=== PATIENT | male | born 1980 | race Caucasian/White ===

== ENCOUNTER 2024-12-13 09:21 | Emergency (ER) | payer BC, SELFPAY ==
[2024-12-13 09:25] VITALS: BP 141/99
[2024-12-13] MEDS: TORADOL 15 MG IV (10:01)
[2024-12-13 10:04] VITALS: BMI 27.0
--- NOTE | 2024-12-13 10:11 | ED.GENMED ---
History of Present Illness
General
Chief Complaint: Abdominal Symptoms
Time Seen by Provider: 12/13/24 09:33
History of Present Illness
History of Present Illness:
44-year-old male without reported past medical history presenting to the emergency department for right lower abdominal pain. Patient reports pain for the past week or so. Initially had been intermittent, now more constant. Denies any nausea,
vomiting, changes in stool. Denies any fever. Denies any history of abdominal surgeries. Denies chest pain or difficulty breathing. Notes that the pain is in the groin region primarily. Denies any back pain. Denies any association with lifting
or trauma. Denies additional acute medical complaints
Past History
Past History
ED Past Medical History: Asthma and GERD
ED Past Surgical History: None
Social History
Tobacco: Non-smoker
Alcohol: Occasional
Drug: None
Personal:
Living: with family
Employment: Employed
Family History
Family History: Negative Early CAD
Phy Exam
Physical Exam
Physical Exam:
General: Well-appearing, no clinical signs of dehydration, nontoxic and in no acute distress
HEENT: protecting airway
Neck: appears supple
CV: Normal heart rate, regular rhythm
Resp: No accessory muscle use, no increased work of breathing, lungs clear to auscultation bilaterally
Abd: Soft and non-distended, mild tenderness to the right lower quadrant region and right inguinal region without significant defect
Extremities: No deformities, no swelling, no erythema
Neuro: alert, no focal neurologic deficit
: deferred
Rectal: deferred
Psych: Normal affect
Skin: Intact
Course
Orders/Labs/Results
Orders:
Orders
12/13/24 09:47
CT Abd/pelvis W Iv Cont Urgent
Comment:
Reason For Exam: R-inguinal pain, possible hernia
Ketorolac [Toradol] 15 mg IV NOW STA
12/13/24 10:05
Complete Blood Count/With Diff Urgent
Comprehensive Metabolic Panel Urgent
Urinalysis Reflex To Culture Urgent
Date Specimen was Collected: 12/13/24
Time Specimen was Collected: 09:58
Abnormal Lab Results
12/13/24
10:05
MCH 31.9 H pg
(27.0-31.0)
Absolute Lymphs (auto) 0.8 L 10^3/uL
(1.2-3.4)
Neutrophils % 78.5 H %
(42.2-75.2)
Lymphocytes % 14.0 L %
(20.5-51.1)
Glucose 115 H mg/dl
(70-99)
Calcium 10.4 H mg/dl
(8.4-10.2)
12/13/24 10:05
12/13/24 10:05
Vital Signs
Initial and Last Documented VS:
Initial Vital Signs
Temp Pulse Resp BP Pulse Ox
98.2 F 107 16 141/99 94
12/13/24 09:25 12/13/24 09:25 12/13/24 09:25 12/13/24 09:25 12/13/24 09:25
Last Documented Vital Signs
Temp Pulse Resp BP Pulse Ox
98.2 F 107 16 141/99 94
12/13/24 09:25 12/13/24 09:25 12/13/24 09:25 12/13/24 09:25 12/13/24 09:25
MDM/Problems Addressed
MDM/Problems Addressed:
44-year-old male presenting for over a week of right lower abdominal pain. Vital signs on arrival are normal.
On exam patient is resting comfortably, no acute distress, nontoxic. Patient with mild tenderness to the right lower region of the abdomen in the right inguinal region. Lower suspicion for acute appendicitis given duration of symptoms and no
additional associated GI symptoms. Suspect possible inguinal hernia. No palpable mass, without present concern for strangulation or incarceration. Will plan for laboratory analysis and CT abdominal imaging for further assessment.
11:30 -patient's labs unremarkable. CT shows bilateral small fat-containing inguinal hernias. Patient otherwise remained stable. Feel stable for discharge with outpatient surgical follow-up. CT report provided. Strict return precautions
communicated and patient verbalized understanding
*Critical Care Note
Total Time (30-74mins, 75-104mins- exclusive of procedures): Not Applicable
ED Attending Note
-
Portions of this chart may have been created with voice recognition software.� Occasional wrong word or��sound alike� substitutions may have occurred due to the inherent limitations of voice recognition software.
Discharge Plan
Departure
Prescriptions:
No Action
No Current Medications
Referrals:
UNKNOWN - PT DOES,NOT KNOW [Unknown Provider] -
Interventions
Interventions:
*Risk Screen - Suicide Last Done: 12/13/24 10:04
*General Assessment Last Done: 12/13/24 10:04
*Neglect/Abuse Screening Last Done: 12/13/24 10:04
UD-Qxxlol-Aemrjaeoqc Assessment Last Done: 12/13/24 10:04
Discharge Date and Time
Print Language: FRENCH
[2024-12-13 10:17] LABS: % Basophils 0.5 % (0-2); % Eosinophils 0.3 % (0-6); % Immature Granulocytes 0.5 % (0-0.5); % Monocytes 6.2 % (1.7-9.3); % Neutrophils 78.5 % (42.2-75.2); Absolute Lymphocytes 0.8 10^3/uL (1.2-3.4); Absolute Monocytes 0.4 10^3/uL (0.1-0.6); Absolute Neutrophils 4.7 10^3/uL (1.4-6.5); Hematocrit 44.7 % (39.0-52.0); Hemoglobin 16.4 g/dL (13.0-18.0); Mean Corp Hgb Conc. 36.7 g/dL (33.0-37.0); Mean Corpuscular Hgb 31.9 pg (27.0-31.0); Mean Platelet Volume 9.4 fL (7.4-10.4); Nucleated Red Blood Cells % 0 % (-); Platelet Count 210 10^3/uL (130-400); Red Blood Cell Count 5.14 10^6/uL (4.70-6.10); Red Cell Dist. Width 11.8 % (11.5-14.5); White Blood Cell Count 5.9 10^3/uL (4.8-10.8)
[2024-12-13 10:28] LABS: ALT (SGPT) 42 U/L (0-50); AST (SGOT) 29 U/L (17-59); Albumin 4.7 g/dl (3.5-5.0); Alkaline Phosphatase 67 U/L (38-126); Blood Urea Nitrogen 10 mg/dl (9-20); Calcium 10.4 mg/dl (8.4-10.2); Carbon Dioxide 25 mmol/L (22-30); Chloride 104 mmol/L (98-107); Estimated Creatinine Clearance > 125 ml/min; Glucose 115 mg/dl (70-99); Potassium 4.4 mmol/L (3.5-5.1); Sodium 141 mmol/L (135-145); Total Bilirubin 1.1 mg/dl (0.2-1.3); Total Protein 7.4 g/dl (6.3-8.2); eGFR > 60.00
[2024-12-13 11:35] VITALS: BP 132/94
[2024-12-13 12:52] LABS: Urine Albumin 2+ (Neg - Trace); Urine Bilirubin Negative (Negative); Urine Character Clear (Clear); Urine Color Yellow; Urine Glucose Negative (Negative); Urine Ketone 1+ (Negative); Urine Leukocyte Negative (Negative); Urine Nitrite Negative (Negative); Urine Occult Blood 1+ (Negative); Urine Specific Gravity 1.015 (<1.030); Urine Urobilinogen Negative (Neg - 1+); Urine pH 6.5 (5.0-9.0)
[2024-12-13 13:20] LABS: Urine Mucus Few; Urine Red Blood Cell 0-2 /HPF (0-2)
[2024-12-13 13:21] LABS: Urine Bacteria Few (Negative)
== END 2024-12-13 11:40 | disposition home or self-care (01) ==
LOC: EMR 09:21
PROVIDERS: EMERGENCY PHYSICIAN Student in an Organized Health Care Education/Training Program; FAMILY PHYSICIAN Family Medicine
DX: K40.20 Bilateral inguinal hernia, without obstruction or gangrene, not specified as recurrent (principal); J45.909 Unspecified asthma, uncomplicated; K21.9 Gastro-esophageal reflux disease without esophagitis
CPT/HCPCS: 96374; 99284; 74177; 80053; 81003; 81015; 85025; Q9967

== ENCOUNTER 2025-04-16 05:51 | Day surgery (SDC) | payer BC, SELFPAY ==
[2025-04-11 13:46] VITALS: BMI 27.3
[2025-04-16] VITALS (9 sets, daily range): BP systolic 112–144; BP diastolic 73–96; BMI 27.3
[2025-04-16] MEDS: TYLENOL 1000 MG PO (06:19)
[2025-04-16] MEDS: HEPARIN 5000 UNITS SC (06:19)
[2025-04-16] MEDS: NORMOSOL-R/PLASMALYTE-A 1000 IV (06:20)
--- NOTE | 2025-04-16 09:03 | OR.RPT ---
Operative Report
Operative Report
Primary Surgeon: Brook
Assisting: Eamon CRUZ
Pre-op Diagnosis: Bilateral inguinal hernias
Post-op Diagnosis: Same
Procedure Performed: Robot assisted laparoscopic repair bilateral inguinal hernias
Anesthesia Type: GETA
Specimen / Cultures: None
Estimated Blood Loss: 5cc
Complications: None immediate
Operative Findings: Bilateral shallow direct defects, pseudosacs everted, small cord lipoma on the right; B/L XL MID 3D Max
Date of Surgery: 04/16/25
Indications: This 44M developed symptomatic right inguinal hernia. ON imaging and exam a contralateral hernia was identified. He asked that we repair both sides today. Robot assisted laparoscopic repair was elected.
Description of procedure:� The patient was taken to the operating room and positioned into supine position. The patient�s abdomen was prepped and draped in standard sterile fashion. A time-out was completed verifying correct patient, procedure,
site, positioning, and implants and special equipment prior to beginning this procedure. The groin hernias were manually reduced.
A stab incision was made in the left upper quadrant, a Veress needle was inserted and proper position was confirmed by aspiration and saline drop test. Following this, pneumoperitoneum was created with insufflation of carbon dioxide to 12 mmHg. Then
a 8mm robotic trocar was inserted above and to the left of the umbilicus. A laparoscope was inserted and the area of initial trocar entry and Veress needle placement were both inspected and no injuries were found. Two 8mm trocars were then placed
lateral to the rectus sheath under direct visualization.
Both inguinal regions were inspected and the median umbilical ligament, medial umbilical ligament, and lateral umbilical fold were identified. Attention was turned to the right groin. The peritoneum was incised transversely above the defect and a
flap was developed in the caudad direction. Luiz�s ligament was identified ultimately dissected to its junction with the iliac vein and the space of Retzius was developed bluntly. The dissection was continued inferiorly to the iliopubic tract,
with care taken to avoid injury to the femoral branch of the genitofemoral nerve and the lateral femoral cutaneous nerve. The cord structures were parietalized.
The direct space was inspected and a hernia defect was identified. The pseudosac was everted and secured to Luiz's ligament with 2-0 vicryl. The femoral space was inspected and a small defect was identified. The indirect space was inspected and
no defect was identified. The canal was inspected and a small cord lipoma was identified and reduced
Attention was turned to the left groin and the above process as repeated. An indirect defect was identified and reduced, the pseudosac was everted and secured to Coper's ligament with 2 Vicryl suture. Canal inspected and no cord lipoma was
identified.
Extra large left and right MID 3D max mesh was passed through a trocar. The mesh was placed into the preperitoneal space and moved into position to lay flat and completely cover the direct, indirect, and femoral spaces with overlap at the midline.
The mesh was secured into place using 2-0 vicryl suture to Luiz�s ligament medially and laterally. Care was taken to avoid the inferolateral triangles containing the iliac vessels and genital nerves. The peritoneal flap was closed over the mesh
and secured with 2-0 monocryl stratafix suture in similar positions of safety. A small flap rent at the inferior aspect of the flap was repaired with 2-0 vicryl suture. A 14g angiocath was used to decompress the preperitoneal space revealing good
seal and all mesh in good position without folding or curling.
After ensuring adequate hemostasis, the trocars were removed and the pneumoperitoneum allowed to escape. The trocar incisions were closed at the skin level using 4-0 monocryl and topical skin adhesive. All counts were correct and the patient
tolerated the procedure well and was taken to the postanesthesia care unit in stable condition.
[2025-04-16] MEDS: DILAUDID 0.25 MG IV ×2 (09:19→09:36)
== END 2025-04-16 12:40 | disposition home or self-care (01) ==
LOC: SDS 05:51
PROVIDERS: ATTENDING PHYSICIAN Surgery; FAMILY PHYSICIAN Family Medicine
DX: K40.20 Bilateral inguinal hernia, without obstruction or gangrene, not specified as recurrent (principal)
CPT/HCPCS: 49650; 36415; 93005; C1781